=== PATIENT | female | born 1960 | race Caucasian/White ===

== ENCOUNTER 2017-12-07 19:00 | Emergency (ER) | payer OTHER ==
--- NOTE | 2017-12-07 19:21 | PDOC ---
History of Present Illness - General History Source: Patient, Family - History of Present Illness Initial Comments: 12/07/17 19:58 The patient is a 57 year old female, with a significant PMH of CVA, COPD, hypercholesterolemia and abdominal hernia, who presents to the emergency department complaining of slurred speech and generalized weakness that began yesterday. The patient reports numbness to the feet, hands and right side of her face accompanied with right knee pain secondary to knee surgery, dizziness, and chills . The patient states she is currently taking Percocet for the pain. The patient also mentions having a Mini stroke with similar symptoms in September and subsided after taking a Aspirin. She reports not going to the hospital.The patient denies chest pain, shortness of breath, headache and dizziness. Denies fever, nausea, vomit, diarrhea and constipation. Denies dysuria, frequency, urgency and hematuria. Allergies: NKDA Past surgical history: Knee surgery and abdominal surgery Social history: current everyday smoker and occasionally drinks alcohol PCP: None reported <Tennille Huerta - Last Filed: 12/07/17 19:57> <Myriam Kyle - Last Filed: 12/08/17 04:27> - General Chief Complaint: Weakness Stated Complaint: WEAKNESS, SLURRED SPEECH Time Seen by Provider: 12/07/17 19:19 Past History <Tennille Huerta - Last Filed: 12/07/17 19:57> - Past Medical History CVA: Yes (TIA) COPD: Yes GI Disorders: Yes Hypercholesterolemia: Yes - Surgical History Abdominal Surgery: Yes (HERNIA) - Immunization History Immunization Up to Date: No - Suicide/Smoking/Psychosocial Hx Smoking History: Current some day smoker Have you smoked in the past 12 months: Yes Number of Cigarettes Smoked Daily: 5 Information on smoking cessation initiated: Yes 'Breaking Loose' booklet given: 12/07/17 Hx Alcohol Use: Yes (OCCASIONAL) Substance Use Type: None <Myriam Kyle - Last Filed: 12/08/17 04:27> - Past Medical History Allergies/Adverse Reactions: Allergies Allergy/AdvReac Type Severity Reaction Status Date / Time No Known Allergies Allergy Verified 12/07/17 19:02 Home Medications: Ambulatory Orders Albuterol Sulfate Inhaler - [Ventolin Hfa Inhaler -] 1 - 2 inh PO Q4H PRN Aspirin [Aspirin EC] 81 mg PO DAILY 12/07/17 Bupropion HCl [Bupropion Xl] 150 mg PO BID 12/07/17 Cephalexin [Keflex] 500 mg PO TID #21 capsule 12/07/17 Cetirizine HCl 10 mg PO DAILY 12/07/17 Cholecalciferol (Vitamin D3) [Vitamin D3 -] 50,000 unit PO WEEKLY 12/07/17 Ibuprofen [Motrin -] 800 mg PO DAILY 12/07/17 Megestrol Acetate Oral Susp [Megace Liquid -] 400 mg PO DAILY 12/07/17 Mirtazapine 30 mg PO DAILY 12/07/17 Oxycodone HCl/Acetaminophen [Percocet 10-325 mg Tablet] 1 each PO Q4H PRN Pravastatin Sodium 10 mg PO DAILY 12/07/17 Ranitidine [Zantac -] 150 mg PO DAILY 12/07/17 Zolpidem Tartrate [Ambien] 10 mg PO HS 12/07/17 Review of Systems - Review of Systems Able to Perform ROS?: Yes Comments:: 12/07/17 20:07 GENERAL/CONSTITUTIONAL: +Weakness. No fever or chills. HEAD, EYES, EARS, NOSE AND THROAT: No change in vision. No ear pain or discharge. No sore throat. CARDIOVASCULAR: No chest pain or shortness of breath. RESPIRATORY: No cough, wheezing, or hemoptysis. GASTROINTESTINAL: No nausea, vomiting, diarrhea or constipation. GENITOURINARY: No dysuria, frequency, or change in urination. MUSCULOSKELETAL: +Right knee pain. No joint or muscle swelling. No neck or back pain. SKIN: No rash NEUROLOGIC: +numbness. +Slurred speech + vertigo. No headache, loss of consciousness, or change in strength/sensation. ENDOCRINE: No increased thirst. No abnormal weight change. HEMATOLOGIC/LYMPHATIC: No anemia, easy bleeding, or history of blood clots. ALLERGIC/IMMUNOLOGIC: No hives or skin allergy. <Tennille Huerta - Last Filed: 12/07/17 19:57> *Physical Exam - Vital Signs Last Vital Signs Temp Pulse Resp BP Pulse Ox 98.6 F 103 H 20 92/61 96 12/07/17 19:00 12/07/17 19:00 12/07/17 19:00 12/07/17 19:00 12/07/17 19:00 - Physical Exam Comments: 12/07/17 20:09 GENERAL: Awake, alert, and fully oriented, in no acute distress HEAD: No signs of trauma EYES: PERRLA, EOMI, sclera anicteric, conjunctiva clear ENT: + Dry mucous membrane. Auricles normal inspection, hearing grossly normal, nares patent, oropharynx clear without exudates. NECK: Normal ROM, supple, no lymphadenopathy, JVD, or masses LUNGS: Breath sounds equal, clear to auscultation bilaterally. No wheezes, and no crackles HEART: + Mild Tachycardia. Normal S1 and S2, no murmurs, rubs or gallops ABDOMEN:+Nontender midline periumbilical hernia otherwise no other mass or tenderness. \ No guarding, no rebound. EXTREMITIES: Normal range of motion, no edema. No clubbing or cyanosis. No cords, erythema, or tenderness NEUROLOGICAL: Cranial nerves II through XII grossly intact. Normal speech. SKIN: Warm, Dry, normal turgor, no rashes or lesions noted. <Tennille Huerta - Last Filed: 12/07/17 19:57> - Vital Signs Last Vital Signs Temp Pulse Resp BP Pulse Ox 98.6 F 103 H 20 92/61 96 12/07/17 19:00 12/07/17 19:00 12/07/17 19:00 12/07/17 19:00 12/07/17 19:00 <Myriam Kyle - Last Filed: 12/08/17 04:27> ED Treatment Course - LABORATORY CBC & Chemistry Diagram: 12/07/17 19:55 12/07/17 19:55 <Myriam Kyle - Last Filed: 12/08/17 04:27> Medical Decision Making - Medical Decision Making Documentation has been prepared under my direction and personally reviewed by me in its entirety. I attest that this documented accurately reflects all work, treatment, procedures and medical decision making performed by me. As noted above, this 57-year-old woman with a history of HTN/COPD/possible TIA is brought in by her with fatigue/weakness over the last day. He also describes vague history of slurred speech yesterday. Patient is [place]- speaking and her is her translator/interpreter. She denies extremity weakness but has had generalized fatigue during this time. She also had chills yesterday without measured fever. No other specific complaints suggestive of acute neurologic deficit. Exam as noted Laboratory studies notable for WBC of 22,700(89.9% neutrophils); Potassium is 3.1. BUN 21/Cre 1.0 Because of the history of possible TIA in the past, noncontrast head CT performed: No evidence of acute intracranial process Portable CXR shows no evidence of infiltrate or other acute process UA positive for UTI with 1.020/2+ LE/10-20 RBC/20-40 WBC/1+epi/2+bact Urine C & S sent Patient is given ceftriaxone 1 g IV to treat her urinary tract infection as well as a liter of normal saline IV. Keflex 500 mg 3 times a day for one week will be prescribed for her UTI: Prescription sent to her pharmacy to be started tomorrow. Repeat blood pressure prior to discharge was 132/80 and repeat temperature 98 degrees Fahrenheit Follow-up with general doctor should be within the next 3 days. It patient should return to the emergency room if she has fever/vomiting/ increased abdominal pain <Myriam Kyle - Last Filed: 12/08/17 04:27> *DC/Admit/Observation/Transfer - Attestations Scribe Attestion: 12/07/17 20:09 Documentation prepared by Tennille Huerta, acting as medical laboratory technical officer for Myriam Kyle MD. <Tennille Huerta - Last Filed: 12/07/17 19:57> <Myriam Kyle - Last Filed: 12/08/17 04:27> Diagnosis at time of Disposition: Urinary tract infection Qualifiers: Urinary tract infection type: site unspecified Hematuria presence: without hematuria Qualified Code(s): N39.0 - Urinary tract infection, site not specified - Discharge Dispostion Disposition: HOME Condition at time of disposition: Stable - Prescriptions Prescriptions: Cephalexin [Keflex] 500 mg PO TID #21 capsule - Patient Instructions Printed Discharge Instructions: Urinary Tract Infection Additional Instructions: Rest; drink plenty of water Keflex 500mg every 8 hours for one week followup with your general doctor within 3 days return to ER if fever/vomiting/abdominal pain develops Print Language: MAURITIAN
[2017-12-07 19:38] VITALS: PULSE 103; BMI 19.7
[2017-12-07 20:11] LABS: URINE APPEARANCE Clear; URINE BILIRUBIN Negative (NEGATIVE); URINE COLOR Yellow; URINE GLUCOSE (UA) Negative (NEGATIVE); URINE KETONE Negative (NEGATIVE); URINE LEUK ESTERASE 2+ (NEGATIVE); URINE NITRITE Negative (NEGATIVE); URINE PROTEIN 2+ (NEGATIVE); URINE UROBILINOGEN 0.2 (0.2-1.0)
[2017-12-07 20:14] LABS: BASO % 0.2 % (0-2.0); HEMATOCRIT 31.8 % (32.4-45.2); HEMOGLOBIN 10.6 GM/dl (10.7-15.3); LYMPH % 3.4 % (8-40); MCH 28.6 pg (25.7-33.7); MCHC 33.4 g/dl (32.0-36.0); MEAN CELL VOLUME 85.6 fl (80-96); MEAN PLT VOLUME 10.6 fl (7.5-11.1); MONO % 6.5 % (3.8-10.2); NEUT % 89.9 % (42.8-82.8); PLATELET COUNT 189 K/MM3 (134-434); RBC 3.71 M/mm3 (3.60-5.2); WHITE BLOOD COUNT 22.7 K/mm3 (4.0-10.8)
[2017-12-07 20:24] LABS: ALBUMIN 3.4 g/dl (3.5-5.0); ALK PHOS 65 U/L (32-92); ANION GAP 7 MMOL/L (8-16); BILIRUBIN,TOTAL 0.4 mg/dl (0.2-1.0); BLOOD UREA NITROGEN 21 mg/dl (7-18); CALCIUM 8.5 mg/dl (8.4-10.2); CHLORIDE 111 mmol/L (98-107); CO2 17 mmol/L (22-28); GLUCOSE,RANDOM 111 mg/dl (74-106); POTASSIUM 3.1 mmol/L (3.5-5.1); SGOT/AST 21 U/L (10-42); SGPT/ALT 24 U/L (10-40); SODIUM 135 mmol/L (136-145); TOT PROT 6.4 g/dl (6.4-8.3)
[2017-12-07 20:28] LABS: EPI CELLS 1+ /HPF; URINE WBC 20-40 (0-5)
[2017-12-07 20:29] LABS: AMORP URATES NONE SEEN /hpf (NONE SEEN); URINE BACTERIA 2+ /hpf (NEGATIVE)
[2017-12-07] MEDS ORDERED: SODIUM CHLORIDE 1,000 ML IV SCH (20:30)
[2017-12-07] MEDS ORDERED: cefTRIAXone SODIUM 1 GM VIAL ONE (20:55)
[2017-12-07] MEDS ORDERED: CEFTRIAXONE 1,000 MG in DEXTROSE 5%-WATER - 50 ML IVPB ONE (21:01)
[2017-12-07] MEDS ORDERED: POTASSIUM CHLORIDE TABS 20 MEQ TABLET.ER (FP) PO ONE ×2 (21:03→21:07)
[2017-12-07 22:03] VITALS: BP 132/80; TEMP 98
== END 2017-12-07 22:13 | disposition home or self-care (01) ==
LOC: FER 19:00
PROC: 3E03329 Introduction of Other Anti-infective into Peripheral Vein, Percutaneous Approach (ICD-10-PCS; principal; 2017-12-07)
PROC: 3E02329 Introduction of Other Anti-infective into Muscle, Percutaneous Approach (ICD-10-PCS; 2017-12-07)
PROC: 3E03329 Introduction of Other Anti-infective into Peripheral Vein, Percutaneous Approach (ICD-10-PCS; 2017-12-07)
PROC: 3E0233Z Introduction of Anti-inflammatory into Muscle, Percutaneous Approach (ICD-10-PCS; 2017-12-07)
DX: N39.0 Urinary tract infection, site not specified (principal); I10 Essential (primary) hypertension; J44.9 Chronic obstructive pulmonary disease, unspecified
CPT/HCPCS: 36415; 70450-TC; 71045-TC-FY; 80053; 81003; 81015; 85025; 87086; 87186; 99284-25; J7030

== ENCOUNTER 2023-09-10 12:26 | Emergency (ER) | payer OTHER ==
[2023-09-10 13:01] VITALS: BP 105/73; PULSE 82; RESP 20; TEMP 99.1; BMI 24.9
[2023-09-10 15:05] LABS: HEMATOCRIT 39.2 % (32.4-45.2); HEMOGLOBIN 12.4 G/dL (10.7-15.3); MCH 27.9 pg (25.7-33.7); MCHC 31.7 g/dl (32.0-36.0); MEAN CELL VOLUME 87.8 fl (80-96); MEAN PLT VOLUME 9.9 fl (7.5-11.1); RBC 4.46 10^6/uL (3.60-5.2); RDW 15.4 % (11.6-15.6); WHITE BLOOD COUNT 6.1 10^3/uL (4.0-10.8)
[2023-09-10 15:25] LABS: ALBUMIN 4.5 g/dl (3.4-5.0); ALK PHOS 70 U/L (45-117); ANION GAP 7 mmol/L (4-13); BILIRUBIN,TOTAL 0.5 mg/dl (0.2-1); CALCIUM 9.6 mg/dl (8.5-10.1); CHLORIDE 109 mmol/L (98-107); CO2 23 mmol/L (21-32); CREATININE 0.8 mg/dl (0.6-1.3); GLUCOSE,RANDOM 113 mg/dl (74-106); POTASSIUM 3.8 mmol/L (3.5-5.1); SGOT/AST 18 U/L (15-37); SGPT/ALT 20 U/L (7-52); SODIUM 139 mmol/L (136-145); TOT PROT 6.6 g/dl (6.4-8.2)
[2023-09-10] MEDS ORDERED: CEPHALEXIN MONOHYDRATE 250 MG CAPSULE (FP) ONE (15:57)
[2023-09-10] MEDS ORDERED: CEPHALEXIN MONOHYDRATE 500 MG CAPSULE (UD) ONE (15:57)
[2023-09-10] MEDS: CEPHALEXIN MONOHYDRATE 250 MG CAPSULE (FP) PO ONE (16:01)
[2023-09-10] MEDS: CEFTRIAXONE 1,000 MG in DEXTROSE 5%-WATER - 50 ML IVPB ONE (16:04)
[2023-09-10 16:59] LABS: PLATELET ESTIMATE ADEQUATE
== END 2023-09-10 16:52 | disposition home or self-care (01) ==
LOC: FER 12:26
DX: N39.0 Urinary tract infection, site not specified (principal); R07.89 Other chest pain; W18.30XA Fall on same level, unspecified, initial encounter; Y93.01 Activity, walking, marching and hiking; Z20.822 Contact with and (suspected) exposure to COVID-19
CPT/HCPCS: 0241U-QW; 36415; 71250-TC; 80053; 81003; 81015; 83735; 84484; 85027; 87086; 87186; 99284-25